=== PATIENT | male | born 1935 | race Caucasian/White ===

== ENCOUNTER 2018-07-26 22:53 | Inpatient (IN) | payer OTHER, MEDICAID ==
[~2018-07-26] VITALS: Ht 170.2 cm; Wt 56.2 kg
[~2018-07-26 22:53] MED LIST: CHOL200026 PO; DIAZ10TA4 PO
--- NOTE | 2018-07-26 23:13 | NUR ---
presented to ER for low BP. pt drowsy . responsive to verbal stimuli. no s/s of pain or discomfort.. placed on a monitor , will cont to monitor
[2018-07-26] MEDS ORDERED: IV NS 0.9% 1,000 ML BAG IV ONE (23:30)
[2018-07-26 23:32] LABS: BASOPHILS % (AUTO) 0.3 % (0.0-2.0); HEMATOCRIT 35 % (39-51); HEMOGLOBIN 11.6 g/dL (13.5-17.5); LYMPHOCYTES # (AUTO) 0.7 /CMM (0.8-4.8); LYMPHOCYTES % (AUTO) 4.9 % (20.0-44.0); MEAN CORPUSCULAR HGB CONC 33 g/dl (31.0-36.0); MEAN CORPUSCULAR VOLUME 91 fL (80-96); MONOCYTES # (AUTO) 0.6 /CMM (0.1-1.30); MONOCYTES % (AUTO) 4.2 % (2.0-12.0); NEUTROPHILS # (AUTO) 12.5 /CMM (1.8-8.9); NEUTROPHILS % (AUTO) 90.6 % (43.0-81.0); PLATELET COUNT (AUTO) 122 /CMM (150-450); RED BLOOD CELL COUNT(AUTO) 3.86 MIL/uL (4.5-6.0); WHITE BLOOD COUNT (AUTO) 13.8 K/uL (4.3-11.0)
[2018-07-26 23:41] LABS: CALCIUM, SERUM 10.8 mg/dL (8.5-10.1); CARBON DIOXIDE 32 mmol/L (21-32); CHLORIDE 107 mmol/L (98-107); CREATININE 1.5 mg/dL (0.6-1.3); GLUCOSE 139 mg/dL (74-106); SODIUM SERUM 144 mmol/L (136-145); UREA NITROGEN, BLOOD 43 mg/dL (7-18)
[2018-07-26 23:55] LABS: ALANINE AMINOTRANSFERASE 29 U/L (12-78); ALBUMIN 3.5 g/dL (3.4-5.0); ALKALINE PHOSPHATASE 73 U/L (46-116); ASPARTATE AMINOTRANSFERASE 32 U/L (15-37); B-TYPE NATRIURETIC PEPTIDE 556 PG/ML (0-125); BILIRUBIN,DIRECT 0.2 mg/dL (0.0-0.2); BILIRUBIN,TOTAL 0.7 mg/dL (0.2-1.0); TOTAL PROTEIN, SERUM 6.3 g/dL (6.4-8.2)
--- NOTE | 2018-07-26 23:57 | NUR ---
MADE AWARE OF BUN/ CR LEVEL, PER MD OK TO PROCEED WITH CT PULM ANGIO AND HEAD CT. TY AT RADIOLOGY MADE AWARE
[2018-07-26] MEDS ORDERED: IOHEXOL-350 100 ML VIAL IV ONE (23:58)
[2018-07-26] MEDS ORDERED: IV NS 0.9% 250 ML IV ONE (23:59)
[2018-07-26] MEDS ORDERED: CT SWABBABLE VALVE TRANS SET 1 EA INFUS.SET MC ONE (23:59)
[2018-07-27] MEDS ORDERED: CYAN10006 IJ (00:13)
[2018-07-27] MEDS ORDERED: CHOL200026 PO (00:13)
[2018-07-27] MEDS ORDERED: LORA10TA7 PO (00:13)
[2018-07-27] MEDS ORDERED: ACYC400T PO (00:13)
[2018-07-27] MEDS ORDERED: MULT1TAB73 PO (00:13)
[2018-07-27] MEDS ORDERED: CALC500T51 PO (00:13)
[2018-07-27] MEDS ORDERED: MARA300T4 PO (00:13)
[2018-07-27] MEDS ORDERED: MELO-107 PO (00:13)
[2018-07-27] MEDS ORDERED: HYDR-3980 PO (00:13)
[2018-07-27] MEDS ORDERED: DOLU1TAB PO (00:13)
[2018-07-27 00:17] LABS: D-DIMER 4.05 mg/L(FEU (0.17-0.50)
[2018-07-27] MEDS ORDERED: ACETAMINOPHEN 325 MG TABLET PO PRN (01:00)
[2018-07-27] MEDS ORDERED: MAGNESIUM HYDROXIDE 30 ML UDC PO PRN (01:00)
[2018-07-27] MEDS ORDERED: ZOLPIDEM TARTRATE 5 MG TABLET PO PRN (01:00)
[2018-07-27] MEDS ORDERED: LEVOFLOXACIN 750 MG /D5W 150ML PIGGYBACK IV ONE (01:00)
[2018-07-27] MEDS ORDERED: ONDANSETRON HCL/PF 4 MG/2 ML VIAL IVP PRN (01:00)
[2018-07-27] MEDS ORDERED: MAG HYDROX/AL HYDROX/SIMETH 30 ML UDC PO PRN (01:00)
[2018-07-27] MEDS ORDERED: HYDROCODONE/APAP 5/325MG 1 EACH TABLET PO PRN (01:00)
[2018-07-27] MEDS ORDERED: CEFTRIAXONE 1 G in IV D5W 50 ML IV ONE (01:00)
[2018-07-27] MEDS ORDERED: Z GUARD REMEDY 2 OZ OINT TP PRN (01:00)
[2018-07-27] MEDS ORDERED: IV NS 0.9% 1,000 ML IV SCH (01:00)
[2018-07-27] MEDS ORDERED: CEFTRIAXONE 1GM BAG (ER ONLY) 50 ML IV ONE (01:01)
[2018-07-27] MEDS ORDERED: LEVOFLOXACIN 750 MG /D5W 150ML 150 ML IV ONE (01:02)
--- NOTE | 2018-07-27 02:43 | NUR ---
CALLED GRETCHEN AND SPOKE TO DAYAN TO F/U W/ THE RESULTS OF HEAD CT AND CT PULM. ANGIO
--- NOTE | 2018-07-27 02:45 | NUR ---
RSTING IN BED AWAKE AND RESPONSIVE. NO PAIN OR DISCOMFORT . ON CONT MONITORING
--- NOTE | 2018-07-27 03:17 | NUR ---
LUCIA BED ASSIGNMENT 118-2
[2018-07-27] MEDS ORDERED: AZITHROMYCIN 500 MG in IV D5W 250 ML IV ONE (03:30)
--- NOTE | 2018-07-27 03:33 | NUR ---
report given to Steve at [facility]
--- NOTE | 2018-07-27 03:57 | NUR ---
pt was transferred to 118-2 under acls protocol in stable condition.
[2018-07-27 04:00] VITALS: BP 121/78
--- NOTE | 2018-07-27 04:00 | NUR ---
LUCIA/RN NOTES 82 YEARS OLD, MALE PATIENT RECEIVED FROM ER, WITH THE DX OF SEPSIS. NO S/S OF ACUTE DISTRESS NOTES. RESP EVEN AND UNLABORED. PATIENT ALERT AND ORIENTED X4, UKRAINIAN SPEAKING. ABLE TO MAKE NEEDS KNOWN. DENIES ANY PAIN OR DISCOMFORT AT THIS TIME. PATIENT PLACED IN BED, BODY ASSESSMENT DONE. KEPT CLEAN AND DRY. SAFETY MAINTAINED. BED AT THE LOWEST POSITION, LOCKED. CALL LIGHT WITHIN REACH. WILL CONTINUE TO MONITOR PATIENT PER PLAN OF CARE.
[2018-07-27] MEDS ORDERED: AZITHROMYCIN 500 MG VIAL ONE (05:26)
--- NOTE | 2018-07-27 07:02 | NUR ---
LUCIA/RN NOTES. PATIENT IN NO ACUTE DISTRESS AT THIS TIME. KEPT CLEAN AND DRY. ALL NEEDS ATTENDANT. SAFETY MAINTAINED. CALL LIGHT WITHIN REACH.
--- NOTE | 2018-07-27 07:30 | NUR ---
LUCIA RN INITIAL NOTES RECEIVED PT IN BED, C/O PAIN 10/10 IN BACK. ON 3L NC. O2 SAT WNL. NO S/SX OF RESP DISTRESS AT REST. ON TELE PT IS AFIB CONTROLLED. PT HAVING LOOSE STOOL. VS WNL. A/OX3. THAI SPEAKING. LAC #18G IN PLACE, RUNNING NS AT 100ML/HR. BED IN LOCKED/LOWEST POSITION. CALL LIGHT IN REACH. WILL CONT TO MONITOR.
[2018-07-27 07:39] LABS: HEMATOCRIT 35 % (39-51); HEMOGLOBIN 11.8 g/dL (13.5-17.5); LYMPHOCYTES # (AUTO) 0.6 /CMM (0.8-4.8); MEAN CORPUSCULAR HGB CONC 33 g/dl (31.0-36.0); MEAN CORPUSCULAR VOLUME 90 fL (80-96); MONOCYTES # (AUTO) 0.7 /CMM (0.1-1.30); MONOCYTES % (AUTO) 5.8 % (2.0-12.0); NEUTROPHILS # (AUTO) 11.4 /CMM (1.8-8.9); NEUTROPHILS % (AUTO) 89.2 % (43.0-81.0); PLATELET COUNT (AUTO) 119 /CMM (150-450); RED BLOOD CELL COUNT(AUTO) 3.93 MIL/uL (4.5-6.0); WHITE BLOOD COUNT (AUTO) 12.8 K/uL (4.3-11.0)
[2018-07-27 07:40] LABS: CHOLESTEROL 74 mg/dL (<200); HDL CHOLESTEROL 42 mg/dL (40-60); LDL 31 mg/dL (0-99); TRIGLYCERIDES 46 mg/dL (30-150)
[2018-07-27 07:48] LABS: CALCIUM, SERUM 10.1 mg/dL (8.5-10.1); CARBON DIOXIDE 26 mmol/L (21-32); CHLORIDE 101 mmol/L (98-107); CREATININE 1.1 mg/dL (0.6-1.3); GLUCOSE 188 mg/dL (74-106); MAGNESIUM 2.2 mg/dL (1.8-2.4); POTASSIUM 4.3 mmol/L (3.5-5.1); SODIUM SERUM 137 mmol/L (136-145); UREA NITROGEN, BLOOD 42 mg/dL (7-18)
[2018-07-27 08:00] VITALS: BP 113/56
[2018-07-27 08:37] LABS: ALBUMIN 3.2 g/dL (3.4-5.0); BILIRUBIN,DIRECT 0.1 mg/dL (0.0-0.2); BILIRUBIN,TOTAL 0.6 mg/dL (0.2-1.0); TOTAL PROTEIN, SERUM 6.2 g/dL (6.4-8.2)
[2018-07-27] MEDS: ACYCLOVIR 200 MG CAPSULE PO SCH (08:37)
[2018-07-27] MEDS: CHOLECALCIFEROL 1,000 UNIT TABLET (VIT D3) PO SCH (08:39)
[2018-07-27] MEDS: HYDROCODONE/APAP 10/325MG 1 EA TABLET PO PRN (08:39)
[2018-07-27] MEDS: CALCIUM CARBONATE (1250) 500 MG TABLET PO SCH (08:39)
[2018-07-27] MEDS: LORATADINE 10 MG TABLET PO SCH (08:39)
[2018-07-27] MEDS: MULTIVITAMINS,THERAGRAN 1 UDTAB TABLET PO SCH (08:40)
[2018-07-27] MEDS ORDERED: Medication Not On Formulary EA (Cholecalciferol (Vitamin D3) (Vitamin D3) 1,000 UNIT) PO SCH (09:00)
[2018-07-27] MEDS ORDERED: MELOXICAM 7.5 MG TABLET PO SCH (09:00)
[2018-07-27] MEDS ORDERED: CHOLECALCIFEROL 1,000 UNIT TABLET (VIT D3) PO SCH (09:00)
--- NOTE | 2018-07-27 09:30 | NUR ---
LUCIA RN NOTES OFFERED PT RECTAL TUBE. PT REFUSED, STATED IN VIETNAMESE THAT IT HURTS. CLEANED PT AND STOPPED INSERTING RECTAL TUBE.
[2018-07-27 12:00] VITALS: BP 122/72
[2018-07-27] MEDS ORDERED: IV NS 0.9% 1,000 ML IV PRN (12:40)
--- NOTE | 2018-07-27 15:05 | NUR ---
LUCIA RN NOTES CALLED DR MARTINEZ RE: HOME MEDS, DIARRHEA AND LOW GRADE FEVER. PER , SHE WILL LOOK AT CHART. AWAITING ORDERS.
[2018-07-27 16:00] VITALS: BP 108/63
--- NOTE | 2018-07-27 18:55 | NUR ---
LUCIA RN END OF SHIFT NOTES PT IN BED, ASLEEP INTERMITTENTLY. VS STABLE. PT NOT IN PAIN AT THIS TIME. AWAITING ORDERS/HOME MED REVIEW FROM DR MARTINEZ. WILL ENDORSE TO PM NURSE FOR BRENDA.
--- NOTE | 2018-07-27 19:20 | NUR ---
LUCIA/RN NOTES PATIENT IN BED, RESTING COMFORTABLY AT THIS TIME, NO S/S OF ACUTE DISTRESS NOTES AT THIS TIME. RESPIRATION EVEN AND UNLABORED. PATIENT ALERT AND ORIENTED X4, ARABIC SPEAKING. ABLE TO MAKE NEEDS KNOWN. DENIES ANY PAIN OR DISCOMFORT AT THIS TIME. PER AM SHIFT NURSE PATIENT BEEN HAVING EPISODES OF LOOSE STOOLS, DENIED RECTAL TUBE INSERTION. WILL CONTINUE TO MONITOR PATIENT. WILL CONTINUE TO HYDRATE PATIENT AND GIVE GOOD PERICARE. SAFETY MAINTAINED. BED AT THE LOWEST POSITION, LOCKED. CALL LIGHT WITHIN REACH. WILL CONTINUE TO MONITOR PATIENT PER PLAN OF CARE.
[2018-07-27 20:00] VITALS: BP 137/71
[2018-07-27] MEDS: DIAZEPAM 10 MG TABLET PO SCH (21:10)
[2018-07-27] MEDS ORDERED: IV D5/ 0.9% NACL 1,000 ML IV ONE (21:30)
[2018-07-27] MEDS ORDERED: VANCOMYCIN 1 GM in IV NS 0.9% 250 ML IV SCH (21:30)
[2018-07-27] MEDS: ALBUTEROL FS 2.5 MG/3 ML VIAL.NEB NEB SCH (22:28)
[2018-07-27] MEDS ORDERED: VANCOMYCIN 1 GM in IV NS 0.9% 250 ML IV ONE (22:30)
[2018-07-27] MEDS ORDERED: VANCOMYCIN 1 GM VIAL ONE (22:38)
[2018-07-27 22:49] LABS: BASOPHILS % (AUTO) 0.1 % (0.0-2.0); EOSINOPHILS % (AUTO) 0.1 % (0.0-6.0); HEMATOCRIT 39 % (39-51); HEMOGLOBIN 12.8 g/dL (13.5-17.5); LYMPHOCYTES # (AUTO) 0.7 /CMM (0.8-4.8); LYMPHOCYTES % (AUTO) 8.5 % (20.0-44.0); MEAN CORPUSCULAR HGB CONC 33 g/dl (31.0-36.0); MEAN CORPUSCULAR VOLUME 90 fL (80-96); MONOCYTES # (AUTO) 0.8 /CMM (0.1-1.30); MONOCYTES % (AUTO) 9.1 % (2.0-12.0); NEUTROPHILS # (AUTO) 7.1 /CMM (1.8-8.9); NEUTROPHILS % (AUTO) 82.2 % (43.0-81.0); PLATELET COUNT (AUTO) 115 /CMM (150-450); RED BLOOD CELL COUNT(AUTO) 4.25 MIL/uL (4.5-6.0); WHITE BLOOD COUNT (AUTO) 8.7 K/uL (4.3-11.0)
[2018-07-27] MEDS ORDERED: DEXTROSE 50%-WATER 50 ML DISP.SYRIN IV PRN (23:00)
[2018-07-27 23:09] LABS: CALCIUM, SERUM 9.4 mg/dL (8.5-10.1); CARBON DIOXIDE 24 mmol/L (21-32); CHLORIDE 102 mmol/L (98-107); CREATININE 0.8 mg/dL (0.6-1.3); GLUCOSE 124 mg/dL (74-106); POTASSIUM 3.8 mmol/L (3.5-5.1); SODIUM SERUM 137 mmol/L (136-145); UREA NITROGEN, BLOOD 30 mg/dL (7-18)
[2018-07-27] MEDS: BLOOD SUGAR DIAGNOSTIC 1 EACH STRIP VI SCH (23:35)
[2018-07-27] MEDS: *INSULIN REGULAR(HUMULIN R)HUM 100 UNIT/ML VIAL SQ PRN (23:41)
[2018-07-28] VITALS: BP 124/73
[2018-07-28] MEDS ORDERED: PIPERACILLIN /TAZOBACTAM 2.25 G VIAL IV ONE ×3 (00:43→05:13)
[2018-07-28] MEDS ORDERED: METRONIDAZOLE 500MG/ NS 100ML 100 ML IV ONE ×2 (00:43→05:12)
[2018-07-28] MEDS: METRONIDAZOLE 500MG/ NS 100ML 500 MG in PREMIX 1 EA IV SCH ×5 (00:48→23:46)
[2018-07-28] MEDS ORDERED: CEFTRIAXONE 1 G in IV D5W 50 ML IV SCH (01:00)
[2018-07-28] MEDS: PIPERACILLIN /TAZOBACTAM 4.5 G in IV D5W 50 ML IV SCH ×4 (01:59→17:58)
[2018-07-28 04:00] VITALS: BP 134/74
--- NOTE | 2018-07-28 06:16 | NUR ---
LUCIA/RN EXIT NOTES PATIENT IN BED, RESTING COMFORTABLY AT THIS TIME, NO S/S OF ACUTE DISTRESS NOTED. RESPIRATION EVEN AND UNLABORED. PATIENT ALERT AND ORIENTED X3 WITH PERIOD OF CONFUSION AND DISORIENTATION. SINHALA SPEAKING. NO S/S OF PAIN NOTED AT THIS TIME.. FLEXISEAL IN PLACE, DRAINING WELL WITH, GREENISH LIQUID STOOLS. PATIENT REMAINED ON SOFT BILATERAL WRIST RESTRAINT, PATIENT CONTINUE TO BE NOTED WITH EPISODES OF PULLING LINES AND RECTAL TUBE. SAFETY MAINTAINED. BED AT THE LOWEST POSITION, LOCKED. CALL LIGHT WITHIN REACH. WILL ENDORSE TO AM SHIFT NURSE FOR BRENDA.
[2018-07-28 07:05] LABS: BASOPHILS % (AUTO) 0.1 % (0.0-2.0); EOSINOPHILS % (AUTO) 0.6 % (0.0-6.0); HEMATOCRIT 35 % (39-51); HEMOGLOBIN 11.8 g/dL (13.5-17.5); LYMPHOCYTES % (AUTO) 11.1 % (20.0-44.0); MEAN CORPUSCULAR HGB CONC 34 g/dl (31.0-36.0); MEAN CORPUSCULAR VOLUME 90 fL (80-96); MONOCYTES # (AUTO) 0.6 /CMM (0.1-1.30); MONOCYTES % (AUTO) 6.8 % (2.0-12.0); NEUTROPHILS # (AUTO) 7.2 /CMM (1.8-8.9); NEUTROPHILS % (AUTO) 81.4 % (43.0-81.0); PLATELET COUNT (AUTO) 108 /CMM (150-450); WHITE BLOOD COUNT (AUTO) 8.8 K/uL (4.3-11.0)
[2018-07-28] MEDS: ALBUTEROL FS 2.5 MG/3 ML VIAL.NEB NEB SCH ×2 (07:09→11:40)
[2018-07-28] MEDS: BLOOD SUGAR DIAGNOSTIC 1 EACH STRIP VI SCH ×4 (07:30→21:21)
[2018-07-28 07:39] LABS: THYROID STIMULATING HORMONE 0.461 uIU/mL (0.358-3.74)
[2018-07-28 07:52] LABS: CALCIUM, SERUM 8.3 mg/dL (8.5-10.1); CARBON DIOXIDE 25 mmol/L (21-32); CHLORIDE 103 mmol/L (98-107); CREATININE 0.8 mg/dL (0.6-1.3); GLUCOSE 133 mg/dL (74-106); MAGNESIUM 1.7 mg/dL (1.8-2.4); POTASSIUM 3.6 mmol/L (3.5-5.1); SODIUM SERUM 135 mmol/L (136-145); UREA NITROGEN, BLOOD 26 mg/dL (7-18)
[2018-07-28 08:00] VITALS: BP 121/67
--- NOTE | 2018-07-28 08:00 | NUR ---
LUCIA/RN NOTES RECEIVED REPORT FROM GUILHERME TO.PATIENT IN BED, RESTING COMFORTABLY AT THIS TIME, NO S/S OF ACUTE DISTRESS NOTES AT THIS TIME. RESPIRATION EVEN AND UNLABORED. PATIENT ALERT AND ORIENTED X4, AMERICAN SPEAKING. ABLE TO MAKE NEEDS KNOWN. DENIES ANY PAIN OR DISCOMFORT AT THIS TIME. RECTAL TUBE DRAINING LIQUID BROWN STOOL.ON ISOLATION FOR C-DIFF PRECAUTIONS.LABS STILL PENDING. BED AT THE LOWEST POSITION, LOCKED. CALL LIGHT WITHIN REACH. SRX3.WILL CONTINUE TO MONITOR.
[2018-07-28] MEDS: CALCIUM CARBONATE (1250) 500 MG TABLET PO SCH (08:56)
[2018-07-28] MEDS: LORATADINE 10 MG TABLET PO SCH (08:56)
[2018-07-28] MEDS: MULTIVITAMINS,THERAGRAN 1 UDTAB TABLET PO SCH (08:56)
[2018-07-28] MEDS: CHOLECALCIFEROL 1,000 UNIT TABLET (VIT D3) PO SCH (08:56)
[2018-07-28] MEDS: ACIDOPHILUS/BULGARICUS 1 EACH TAB.CHEW PO SCH ×3 (08:56→17:58)
[2018-07-28] MEDS ORDERED: FEE PK DOSING 1 MIN EA MC ONE (09:08)
--- NOTE | 2018-07-28 09:15 | NUR ---
rn note report given to Chelsea for BRENDA, pt stable off restraints, pt calm.
[2018-07-28] MEDS: Magnesium 1GM/D5W 100ML PREMIX 100 ML IV SCH ×3 (10:30→19:25)
[2018-07-28] MEDS: VANCOMYCIN 0.75 GM in IV D5W 250 ML IV SCH ×2 (11:52→22:46)
[2018-07-28 12:00] VITALS: BP 119/62
--- NOTE | 2018-07-28 12:00 | NUR ---
PORT SURVEYOR NOTE SEEN BY ,UPDATED ABOUT PATIENT CONDITION WITH LABS.MADE AWARE ABOUT POOR PO INTAKE.GOT NEW ORDERS.SEEN BY .UPDATED ABOUT PATIENT CONDITION.WILL CONTINUE TO MONITOR.MORNING INSULIN NOT ADMINISTERED BECAUSE OF POOR PO INTAKE.
[2018-07-28] MEDS: ACYCLOVIR 200 MG CAPSULE PO SCH (12:17)
--- NOTE | 2018-07-28 14:00 | NUR ---
PACKAGE SEALER NOTE UPDATED ABOUT PATIENT CONDITION,CONTROLLED AFIB FROM SR FROM MORNING.NO ON ANY MEDS.OK TO CONTINUE HOME MEDS.THAT PATIENT BROUGHT FROM HOME.
[2018-07-28] MEDS: ALBUTEROL HALF STRENGTH 1.25 MG/3 ML VIAL.NEB NEB SCH ×2 (14:30→19:48)
[2018-07-28] MEDS: IPRATROPIUM NEB FS 0.5 MG/2.5 ML AMPUL.NEB NEB SCH ×2 (14:30→19:48)
[2018-07-28] MEDS: GUAIFENESIN LA 600 MG TABLET.SA PO SCH ×2 (14:51→21:11)
[2018-07-28 16:00] VITALS: BP 103/62
--- NOTE | 2018-07-28 16:37 | NUR ---
LUCIA RN NOTE PATIENT C/O LOWER ABDOMINAL PAIN AND LOW URINE OUT PUT.BLADER SCAN DONE.>450 ML RESIDUAL.REYES CATH INSERTED. MADE AWARE.LEFT MESSAGE.
[2018-07-28] MEDS: RILPIVIRINE PO SCH (17:58)
[2018-07-28] MEDS: MARAVIROC 300 MG PO SCH (17:58)
[2018-07-28] MEDS: DOLUTEGRAVIR PO SCH (17:58)
--- NOTE | 2018-07-28 19:00 | NUR ---
LUCIA/RN CLOSING NOTES PATIENT IN BED, RESTING COMFORTABLY AT THIS TIME, NO S/S OF ACUTE DISTRESS NOTES AT THIS TIME. RESPIRATION EVEN AND UNLABORED. PATIENT ALERT AND ORIENTED X4, CUBAN SPEAKING. ABLE TO MAKE NEEDS KNOWN. DENIES ANY PAIN OR DISCOMFORT AT THIS TIME. RECTAL TUBE DRAINING LIQUID BROWN STOOL. F/C DRAINING CLEAR DARK YELLOW URINE.BED AT THE LOWEST POSITION, LOCKED. CALL LIGHT WITHIN REACH. SRX3.WILL ENDORSE TO PM NURSE FOR BRENDA.
[2018-07-28 20:00] VITALS: BP 109/56
[2018-07-28] MEDS: DIAZEPAM 10 MG TABLET PO SCH (21:11)
[2018-07-28] MEDS: *INSULIN REGULAR(HUMULIN R)HUM 100 UNIT/ML VIAL SQ PRN (21:21)
[2018-07-28] MEDS ORDERED: IPRATROPIUM NEB FS 0.5 MG/2.5 ML AMPUL.NEB NEB SCH (22:30)
[2018-07-29] VITALS: BP 118/64
--- NOTE | 2018-07-29 | NUR ---
rosmery rn notes pts comfortably in bed sleeping no s/s of pain noted ,all needs attended too.
[2018-07-29] MEDS: PIPERACILLIN /TAZOBACTAM 4.5 G in IV D5W 50 ML IV SCH ×4 (00:34→16:47)
[2018-07-29] MEDS: ALBUTEROL HALF STRENGTH 1.25 MG/3 ML VIAL.NEB NEB SCH ×4 (01:05→19:55)
[2018-07-29] MEDS: IPRATROPIUM NEB FS 0.5 MG/2.5 ML AMPUL.NEB NEB SCH ×4 (01:05→19:55)
--- NOTE | 2018-07-29 01:53 | NUR ---
rosmery rn notes received pts in bed awake alert and responsive syriac speaking pts on 4 liters of 02 via nasal cannula, on tele afib controlled on the monitor sating 97% no sob no distress noted v/s stable afebrile , all needs attended too call light within reach due medication iv and po given as ordered, pts on f/c intact and patent draining with yellowish urine output . contact isolation completed pts is negative to cdiff , pts noted with loose and wattery stool on flexeseal drainage of liquid stool , on iv heplock on left upper arm and right upper arm g#20 intact and patent ,turned and reposition breathing tx given by rt as ordered, will continue to monitor pts . Addendum: 07/29/18 at 0207 by AMIE MENDOZA RN this note is intended for 8pm as initial notes
--- NOTE | 2018-07-29 02:51 | NUR ---
rosmery rn notes transfer care and report given to bart vasques on 02 at 2 liters via hi sating 98%
[2018-07-29 04:00] VITALS: BP 143/82
[2018-07-29 05:09] LABS: *BASOS 0 % (Not Estab.); *EOS 0 % (Not Estab.); *HCT 37.6 % (37.5-51.0); *HGB 12.5 g/dL (13.0-17.7); *IMMATURE GRANULOCYTES 0 % (Not Estab.); *LYMPHOCYTES 9 % (Not Estab.); *LYMPHS, ABSOLUTE 0.9 x10E3/uL (0.7-3.1); *MCH 29.3 pg (26.6-33.0); *MCHC 33.2 g/dL (31.5-35.7); *MCV 88 fL (79-97); *MONOCYTES 11 % (Not Estab.); *NEUTROPHILS 80 % (Not Estab.); *NEUTROPHILS, ABSOLUTE 7.4 x10E3/uL (1.4-7.0); *PLT 133 x10E3/uL (150-450); *RBC 4.26 x10E6/uL (4.14-5.80); *RDW 14.6 % (12.3-15.4)
--- NOTE | 2018-07-29 06:21 | NUR ---
TELE-TD/RN PATIENT IS SLEEPING AT THIS TIME, APPEAR COMFORTABLE, NO SIGNS OF DISTRESS NOTED, CALL LIGHT IN REACH. WILL CONTINUE TO MONITOR.
[2018-07-29] MEDS: METRONIDAZOLE 500MG/ NS 100ML 500 MG in PREMIX 1 EA IV SCH ×3 (06:26→16:47)
[2018-07-29 07:26] LABS: BASOPHILS % (AUTO) 0.5 % (0.0-2.0); EOSINOPHILS % (AUTO) 1.6 % (0.0-6.0); HEMATOCRIT 32 % (39-51); HEMOGLOBIN 10.8 g/dL (13.5-17.5); LYMPHOCYTES # (AUTO) 1.4 /CMM (0.8-4.8); MEAN CORPUSCULAR HGB CONC 34 g/dl (31.0-36.0); MEAN CORPUSCULAR VOLUME 90 fL (80-96); MONOCYTES # (AUTO) 0.5 /CMM (0.1-1.30); MONOCYTES % (AUTO) 5.2 % (2.0-12.0); NEUTROPHILS # (AUTO) 7.1 /CMM (1.8-8.9); NEUTROPHILS % (AUTO) 77.7 % (43.0-81.0); PLATELET COUNT (AUTO) 95 /CMM (150-450); RED BLOOD CELL COUNT(AUTO) 3.55 MIL/uL (4.5-6.0); WHITE BLOOD COUNT (AUTO) 9.2 K/uL (4.3-11.0)
[2018-07-29 07:54] LABS: CALCIUM, SERUM 7.8 mg/dL (8.5-10.1); CARBON DIOXIDE 27 mmol/L (21-32); CHLORIDE 102 mmol/L (98-107); CREATININE 0.8 mg/dL (0.6-1.3); GLUCOSE 121 mg/dL (74-106); MAGNESIUM 1.9 mg/dL (1.8-2.4); PHOSPHORUS 2.5 mg/dL (2.5-4.9); POTASSIUM 3.6 mmol/L (3.5-5.1); SODIUM SERUM 136 mmol/L (136-145); UREA NITROGEN, BLOOD 14 mg/dL (7-18)
[2018-07-29 08:00] VITALS: BP 128/71
[2018-07-29] MEDS: BLOOD SUGAR DIAGNOSTIC 1 EACH STRIP VI SCH ×4 (08:38→21:15)
[2018-07-29 08:49] LABS: BAND % (MANUAL) 1 % (0.0-5.0); EOSINOPHILS % (MANUAL) 2 % (0-4); LYMPHOCYTES % (MANUAL) 15 % (16-48); MONOCYTES % (MANUAL) 4 % (0-11.0); NEUTROPHILS % (MANUAL) 78 (42-76)
[2018-07-29] MEDS: INSULIN REGULAR, HUMAN 100 UNIT/ML 3 ML VIAL SQ PRN ×2 (08:52→12:37)
[2018-07-29 11:17] LABS: *% CD 4 POS. LYMPH 26.1 % (30.8-58.5); *% CD 8 POS. LYMPH 53.3 % (12.0-35.5); *ABSOLUTE CD 4 HELPER 235 /uL (359-1519); *ABSOLUTE CD 8 SUPPRESSOR 480 /uL (109-897); *CD4/CD8 RATIO 0.49 (0.92-3.72)
[2018-07-29] MEDS: CALCIUM CARBONATE (1250) 500 MG TABLET PO SCH (11:32)
[2018-07-29] MEDS: MULTIVITAMINS,THERAGRAN 1 UDTAB TABLET PO SCH (11:32)
[2018-07-29] MEDS: ACIDOPHILUS/BULGARICUS 1 EACH TAB.CHEW PO SCH ×3 (11:32→16:45)
[2018-07-29] MEDS: GUAIFENESIN LA 600 MG TABLET.SA PO SCH ×2 (11:32→21:03)
[2018-07-29] MEDS: ACYCLOVIR 200 MG CAPSULE PO SCH (11:33)
[2018-07-29] MEDS: CHOLECALCIFEROL 1,000 UNIT TABLET (VIT D3) PO SCH (11:33)
[2018-07-29] MEDS: LORATADINE 10 MG TABLET PO SCH (11:33)
[2018-07-29] MEDS: AZITHROMYCIN 250 MG TABLET PO SCH (11:33)
[2018-07-29] MEDS: VANCOMYCIN 0.75 GM in IV D5W 250 ML IV SCH (11:39)
[2018-07-29 12:00] VITALS: BP 119/69
[2018-07-29 16:00] VITALS: BP 116/70
[2018-07-29] MEDS: MARAVIROC 300 MG PO SCH (16:46)
[2018-07-29] MEDS: RILPIVIRINE PO SCH (16:46)
[2018-07-29] MEDS: DOLUTEGRAVIR PO SCH (16:46)
--- NOTE | 2018-07-29 19:05 | NUR ---
RN MS OPENING NOTES RECEIVED PATIENT IN BED AWAKE ALERT AND OREINTED X 3-4 , AZERI SPEAKING ABLE TO MAKE NEEDS KNOWN, RESPIRATIONS EVEN AND UNLABORED WITH EQUAL RISE AND FALL OF CHEST, DENIES ANY PAIN OR DISCOMFORT , ON 02 2 LITERS HOWEVER PATIENT REMOVES IT STATES HE DOESN'T NEED IT HE IS NOT SHORT OF BREATH WILL CALL IF HE NEEDS IT TO HAVE IT PLACED , PATIENT ALSO HAS AN ORDER FOR RECTAL TUBE, HOWEVER PATIENT DOES NOT WANT TO HAVE IT PLACED REFUSED, AT THIS TIME STATES HE DOES NOT HAVE ANY BM,BUT WILL CALL WHEN NEED TO BE CHANGED.FOELY CATHETER INTACT AND DRAINING WELL URINE YELLOW, CLEAR, IV SITE TO RIGHT FA AND LEFT FA #20 G , NO REDNESS, NO INFILTRATION . ORIENTED TO STAFF AND CALL LIGHT AND KEPT WITHIN REACH, ALL NEEDS ATTENDED AT THIS TIME,WILL CONTINUE TO MONITOR AND ATTEND TO NEEDS.
--- NOTE | 2018-07-29 19:11 | NUR ---
Handoff to YOUSUF Guzmán. Edwardo Floyd RN
[2018-07-29 20:00] VITALS: BP 153/58
[2018-07-29] MEDS: DIAZEPAM 10 MG TABLET PO SCH (21:03)
[2018-07-29] MEDS: *INSULIN REGULAR(HUMULIN R)HUM 100 UNIT/ML VIAL SQ PRN (21:15)
[2018-07-29] MEDS: VANCOMYCIN 1 GM in IV D5W 250 ML IV SCH (23:32)
[2018-07-30] MEDS: METRONIDAZOLE 500MG/ NS 100ML 500 MG in PREMIX 1 EA IV SCH ×4 (00:31→18:00)
[2018-07-30] MEDS: PIPERACILLIN /TAZOBACTAM 4.5 G in IV D5W 50 ML IV SCH ×4 (00:32→18:58)
[2018-07-30] MEDS: ALBUTEROL HALF STRENGTH 1.25 MG/3 ML VIAL.NEB NEB SCH ×4 (01:59→20:19)
[2018-07-30] MEDS: IPRATROPIUM NEB FS 0.5 MG/2.5 ML AMPUL.NEB NEB SCH ×4 (01:59→20:19)
[2018-07-30 04:00] VITALS: BP 105/64
--- NOTE | 2018-07-30 06:30 | NUR ---
RN MS CLOSING NOTES PATIENT IN BED AWAKE ALERT AND ORIENTED X 3-4 , CONGOLESE SPEAKING ABLE TO MAKE NEEDS KNOWN, RESPIRATIONS EVEN AND UNLABORED WITH EQUAL RISE AND FALL OF CHEST, DENIES ANY PAIN OR DISCOMFORT , ON 02 2 LITERS HOWEVER PATIENT REMOVES IT STATES HE DOESN'T NEED IT HE IS NOT SHORT OF BREATH WILL CALL IF HE NEEDS IT TO HAVE IT PLACED AT THIS TIME DOES NOT HAVE IT PLACED PER REQUEST SPO2 WNL 96-100% , PATIENT ALSO HAS AN ORDER FOR RECTAL TUBE, HOWEVER PATIENT DOES NOT WANT TO HAVE IT PLACED REFUSED, AT THIS TIME STATES HE DOES NOT HAVE ANY BM,BUT WILL CALL WHEN NEED TO BE CHANGED.FOELY CATHETER INTACT AND DRAINING WELL URINE YELLOW, CLEAR, IV SITE TO RIGHT FA AND LEFT FA #20 G , NO REDNESS, NO INFILTRATION . ABX RUNNING ORDERED CALL LIGHT KEPT WITHIN REACH, ALL NEEDS ATTENDED AT THIS TIME,WILL CONTINUE TO MONITOR AND ATTEND TO NEEDS AND ENDORSE TO NEXT SHIFT, REPOSITIONED HEELS OFFLOADED, SKIN REMAINS INTACT.
[2018-07-30 07:07] LABS: BASOPHILS % (AUTO) 0.3 % (0.0-2.0); EOSINOPHILS % (AUTO) 1.5 % (0.0-6.0); HEMATOCRIT 33 % (39-51); LYMPHOCYTES % (AUTO) 10.9 % (20.0-44.0); MEAN CORPUSCULAR HGB CONC 34 g/dl (31.0-36.0); MEAN CORPUSCULAR VOLUME 90 fL (80-96); MONOCYTES # (AUTO) 0.5 /CMM (0.1-1.30); NEUTROPHILS # (AUTO) 7.5 /CMM (1.8-8.9); NEUTROPHILS % (AUTO) 82.3 % (43.0-81.0); PLATELET COUNT (AUTO) 103 /CMM (150-450); RED BLOOD CELL COUNT(AUTO) 3.64 MIL/uL (4.5-6.0); WHITE BLOOD COUNT (AUTO) 9.1 K/uL (4.3-11.0)
[2018-07-30 07:18] LABS: CALCIUM, SERUM 7.6 mg/dL (8.5-10.1); CARBON DIOXIDE 28 mmol/L (21-32); CHLORIDE 102 mmol/L (98-107); CREATININE 0.9 mg/dL (0.6-1.3); GLUCOSE 105 mg/dL (74-106); MAGNESIUM 1.8 mg/dL (1.8-2.4); PHOSPHORUS 2.4 mg/dL (2.5-4.9); POTASSIUM 3.4 mmol/L (3.5-5.1); SODIUM SERUM 137 mmol/L (136-145); UREA NITROGEN, BLOOD 11 mg/dL (7-18)
[2018-07-30] MEDS: BLOOD SUGAR DIAGNOSTIC 1 EACH STRIP VI SCH ×4 (07:30→22:18)
[2018-07-30 08:00] VITALS: BP 126/69
[2018-07-30] MEDS: CALCIUM CARBONATE (1250) 500 MG TABLET PO SCH (09:39)
[2018-07-30] MEDS: MULTIVITAMINS,THERAGRAN 1 UDTAB TABLET PO SCH (09:39)
[2018-07-30] MEDS: AZITHROMYCIN 250 MG TABLET PO SCH (09:39)
[2018-07-30] MEDS: CHOLECALCIFEROL 1,000 UNIT TABLET (VIT D3) PO SCH (09:39)
[2018-07-30] MEDS: GUAIFENESIN LA 600 MG TABLET.SA PO SCH ×2 (09:39→20:54)
[2018-07-30] MEDS: ACYCLOVIR 200 MG CAPSULE PO SCH (09:39)
[2018-07-30] MEDS: LORATADINE 10 MG TABLET PO SCH (09:39)
[2018-07-30] MEDS: ACIDOPHILUS/BULGARICUS 1 EACH TAB.CHEW PO SCH ×3 (09:52→18:58)
--- NOTE | 2018-07-30 10:42 | NUR ---
home medications requested from the pharmacy .not available.
[2018-07-30] MEDS: VANCOMYCIN 1 GM in IV D5W 250 ML IV SCH ×3 (11:20→22:50)
[2018-07-30] MEDS ORDERED: POTASSIUM CHLORIDE 20 MEQ TAB.PRT.SR PO SCH (11:30)
[2018-07-30] MEDS: MARAVIROC 300 MG PO SCH (12:13)
[2018-07-30] MEDS: RILPIVIRINE PO SCH (12:13)
[2018-07-30] MEDS: DOLUTEGRAVIR PO SCH (12:13)
[2018-07-30] MEDS ORDERED: K PHOS NEUTRAL 250 MG TABLET PO ONE ×2 (13:00→13:30)
[2018-07-30] MEDS: INSULIN REGULAR, HUMAN 100 UNIT/ML 3 ML VIAL SQ PRN (13:13)
--- NOTE | 2018-07-30 13:53 | NUR ---
k phos 1 time dose given ,the other order is dulicate
[2018-07-30] MEDS: Magnesium 1GM/D5W 100ML PREMIX 100 ML IV SCH ×2 (14:34→16:48)
[2018-07-30 16:00] VITALS: BP 114/60
--- NOTE | 2018-07-30 18:03 | NUR ---
flagyl dose for 1800 held as the dose for 1300 was given late due to medications not available
--- NOTE | 2018-07-30 19:43 | NUR ---
RN MS OPENING NOTES RECIEVED PATIENT IN BED AWAKE ALERT AND ORIENTED X 3-4 , SAOTIMES FOUR. RESPIRATIONS EVEN AND UNLABORED WITH EQUAL RISE AND FALL OF CHEST, DENIES ANY PAIN OR DISCOMFORTWILL CONTINUE TO MONITER AND CARRY OUT PLAN OF CARE..
[2018-07-30 20:00] VITALS: BP 132/72
[2018-07-30] MEDS: DIAZEPAM 10 MG TABLET PO SCH (21:06)
[2018-07-30 23:00] VITALS: BP 132/72
[2018-07-31] VITALS: BP 132/72
[2018-07-31] MEDS: PIPERACILLIN /TAZOBACTAM 4.5 G in IV D5W 50 ML IV SCH ×3 (00:08→12:14)
[2018-07-31] MEDS: METRONIDAZOLE 500MG/ NS 100ML 500 MG in PREMIX 1 EA IV SCH ×5 (00:09→23:42)
[2018-07-31] MEDS: ALBUTEROL HALF STRENGTH 1.25 MG/3 ML VIAL.NEB NEB SCH ×4 (02:29→19:45)
[2018-07-31] MEDS: IPRATROPIUM NEB FS 0.5 MG/2.5 ML AMPUL.NEB NEB SCH ×4 (02:29→19:45)
[2018-07-31 04:00] VITALS: BP 132/77
--- NOTE | 2018-07-31 06:40 | NUR ---
RN MS CLOSING NOTES: PATIENT IN BED AWAKE ALERT AND ORIENTED X 3-4. IN NO ACUTE DISTRESS. RESPIRATIONS EVEN AND UNLABORED WITH EQUAL RISE AND FALL OF CHEST, DENIES ANY PAIN OR DISCOMFORT .. ALL NEEDS MET. WILL ENDORSE PLAN OF CARE TO AM SHIFT.
[2018-07-31 07:21] LABS: CALCIUM, SERUM 7.8 mg/dL (8.5-10.1); CARBON DIOXIDE 27 mmol/L (21-32); CHLORIDE 104 mmol/L (98-107); CREATININE 0.7 mg/dL (0.6-1.3); GLUCOSE 113 mg/dL (74-106); POTASSIUM 3.3 mmol/L (3.5-5.1); SODIUM SERUM 139 mmol/L (136-145); UREA NITROGEN, BLOOD 7 mg/dL (7-18)
[2018-07-31] MEDS: BLOOD SUGAR DIAGNOSTIC 1 EACH STRIP VI SCH ×4 (07:30→21:29)
[2018-07-31 08:00] VITALS: BP 114/57
[2018-07-31] MEDS ORDERED: POTASSIUM CHLORIDE 20 MEQ TAB.PRT.SR PO SCH (09:00)
[2018-07-31] MEDS: MULTIVITAMINS,THERAGRAN 1 UDTAB TABLET PO SCH (09:21)
[2018-07-31] MEDS: CHOLECALCIFEROL 1,000 UNIT TABLET (VIT D3) PO SCH (09:21)
[2018-07-31] MEDS: GUAIFENESIN LA 600 MG TABLET.SA PO SCH ×2 (09:21→21:15)
[2018-07-31] MEDS: LORATADINE 10 MG TABLET PO SCH (09:21)
[2018-07-31] MEDS: ACYCLOVIR 200 MG CAPSULE PO SCH (09:23)
[2018-07-31] MEDS: CALCIUM CARBONATE (1250) 500 MG TABLET PO SCH (09:24)
[2018-07-31] MEDS: AZITHROMYCIN 250 MG TABLET PO SCH (09:24)
[2018-07-31] MEDS: ACIDOPHILUS/BULGARICUS 1 EACH TAB.CHEW PO SCH ×3 (09:26→18:23)
[2018-07-31] MEDS: RILPIVIRINE PO SCH (10:26)
[2018-07-31] MEDS: VANCOMYCIN 1 GM in IV D5W 250 ML IV SCH (10:26)
[2018-07-31] MEDS: DOLUTEGRAVIR PO SCH (10:26)
[2018-07-31] MEDS: MARAVIROC 300 MG PO SCH (10:26)
[2018-07-31 12:00] VITALS: BP 120/65
[2018-07-31 16:00] VITALS: BP 118/75
[2018-07-31] MEDS: LEVOFLOXACIN (750 MG) 750 MG TABLET PO SCH (16:23)
--- NOTE | 2018-07-31 19:30 | NUR ---
MS RN OPENING NOTES Received patient A/O x4, awake, [place]an speaking with minimal Slovenian noted. Able to make needs known. On O2 inhalation via NC @ 2LPM, saturating well. No discomfort/complaints noted at this time. With pending order to D/C Da Silva catheter per MD. D/C FC with 350cc clear urine noted. Put on diaper. Encouraged patient to increase oral fluid intake as tolerated unless contraindicated. Provided water at bedside. Will continue to monitor accordingly. On fall precautions, call light within easy reach.
[2018-07-31 20:00] VITALS: BP 119/66
[2018-07-31] MEDS: DIAZEPAM 10 MG TABLET PO SCH (21:16)
--- NOTE | 2018-07-31 22:00 | NUR ---
MS RN NOTED Patient able to void with BM noted on diaper. Perineal care done, diaper changed.
[2018-08-01] MEDS: IPRATROPIUM NEB FS 0.5 MG/2.5 ML AMPUL.NEB NEB SCH ×4 (01:30→19:55)
[2018-08-01] MEDS: ALBUTEROL HALF STRENGTH 1.25 MG/3 ML VIAL.NEB NEB SCH ×4 (01:30→19:55)
[2018-08-01] MEDS: METRONIDAZOLE 500MG/ NS 100ML 500 MG in PREMIX 1 EA IV SCH ×3 (05:44→18:40)
[2018-08-01] MEDS: BLOOD SUGAR DIAGNOSTIC 1 EACH STRIP VI SCH ×4 (06:38→21:43)
--- NOTE | 2018-08-01 07:00 | NUR ---
MS RN CLOSING NOTES Patient asleep, easily awake, on supine position on bed. Total void within the shift x2 with LBM. No new complaints made. All due meds given as ordered. On fall precautions, call light within easy reach. Endorsed to the next shift.
[2018-08-01 07:06] LABS: BASOPHILS % (AUTO) 0.4 % (0.0-2.0); EOSINOPHILS % (AUTO) 2.1 % (0.0-6.0); HEMATOCRIT 35 % (39-51); HEMOGLOBIN 11.5 g/dL (13.5-17.5); LYMPHOCYTES % (AUTO) 14.1 % (20.0-44.0); MEAN CORPUSCULAR HGB CONC 33 g/dl (31.0-36.0); MEAN CORPUSCULAR VOLUME 91 fL (80-96); MONOCYTES # (AUTO) 0.6 /CMM (0.1-1.30); MONOCYTES % (AUTO) 8.3 % (2.0-12.0); NEUTROPHILS # (AUTO) 5.4 /CMM (1.8-8.9); NEUTROPHILS % (AUTO) 75.1 % (43.0-81.0); PLATELET COUNT (AUTO) 127 /CMM (150-450); RED BLOOD CELL COUNT(AUTO) 3.87 MIL/uL (4.5-6.0); WHITE BLOOD COUNT (AUTO) 7.2 K/uL (4.3-11.0)
[2018-08-01 07:13] LABS: CALCIUM, SERUM 8.1 mg/dL (8.5-10.1); CARBON DIOXIDE 28 mmol/L (21-32); CHLORIDE 106 mmol/L (98-107); CREATININE 0.6 mg/dL (0.6-1.3); GLUCOSE 109 mg/dL (74-106); MAGNESIUM 1.7 mg/dL (1.8-2.4); POTASSIUM 3.5 mmol/L (3.5-5.1); SODIUM SERUM 141 mmol/L (136-145); UREA NITROGEN, BLOOD 8 mg/dL (7-18)
[2018-08-01 08:00] VITALS: BP 150/85
[2018-08-01] MEDS: ACIDOPHILUS/BULGARICUS 1 EACH TAB.CHEW PO SCH ×3 (08:00→18:40)
[2018-08-01] MEDS: HYDROCODONE/APAP 10/325MG 1 EA TABLET PO PRN ×2 (08:45→15:00)
[2018-08-01] MEDS: LORATADINE 10 MG TABLET PO SCH (09:00)
[2018-08-01] MEDS: RILPIVIRINE PO SCH (09:00)
[2018-08-01] MEDS: MARAVIROC 300 MG PO SCH (09:00)
[2018-08-01] MEDS: CALCIUM CARBONATE (1250) 500 MG TABLET PO SCH (09:00)
[2018-08-01] MEDS: DOLUTEGRAVIR PO SCH (09:00)
[2018-08-01] MEDS: MULTIVITAMINS,THERAGRAN 1 UDTAB TABLET PO SCH (09:00)
[2018-08-01] MEDS: GUAIFENESIN LA 600 MG TABLET.SA PO SCH ×2 (09:00→21:43)
[2018-08-01] MEDS: ACYCLOVIR 200 MG CAPSULE PO SCH (09:00)
[2018-08-01] MEDS: CHOLECALCIFEROL 1,000 UNIT TABLET (VIT D3) PO SCH (09:00)
[2018-08-01 10:00] VITALS: BP 150/85
[2018-08-01] MEDS: Magnesium 1GM/D5W 100ML PREMIX 100 ML IV SCH ×2 (14:30→15:30)
[2018-08-01] MEDS: Potassium Phosphate meq 11 MEQ in IV D5W 100 ML IV SCH ×2 (15:00→18:40)
[2018-08-01 16:00] VITALS: BP 126/63
[2018-08-01] MEDS: LEVOFLOXACIN (750 MG) 750 MG TABLET PO SCH (16:09)
--- NOTE | 2018-08-01 19:39 | NUR ---
MS RN NOTES RECEIVED PT ON BED. SLEEPING. ON ROOM AIR NO RESPIRATORY DISTRESS NOTED. IV ACCESS PATENT AND INTACT. HEAD OF BED ELEVATED. SIDE RAILS UP. BED ALARM ON. WILL MONITOR PT CLOSELY.
[2018-08-01 20:00] VITALS: BP 124/73
--- NOTE | 2018-08-01 21:00 | NUR ---
RN MS NOTES RECEIVED PATIENT IN BED ASLEEP. EASILY AROUSABLE. ALERT AND ORIENTED X2, VERBALLY RESPONSIVE, ABLE TO MAKE NEEDS. LITHUANIAN SPEAKER. BREATHING EVEN AND UNLABORED. NO SOB NOTED. TOLERATING ROOM AIR. NO COMPLAINTS OF PAIN OR DISCOMFORT. NO FACIAL GRIMACING. IV ON RIGHT AND LEFT FOREARM INTACT AND PATENT. SKIN DRY AND WARM TO TOUCH. AFEBRILE. ALL OTHER NEEDS MET. SAFETY MEASURES IN PLACE. CALL LIGHT WITHIN REACH. WILL CONTINUE TO MONITOR.
[2018-08-01] MEDS: DIAZEPAM 10 MG TABLET PO SCH (21:43)
[2018-08-01] MEDS: *INSULIN REGULAR(HUMULIN R)HUM 100 UNIT/ML VIAL SQ PRN (21:45)
[2018-08-02] MEDS: METRONIDAZOLE 500MG/ NS 100ML 500 MG in PREMIX 1 EA IV SCH ×2 (00:14→05:53)
[2018-08-02] MEDS: ALBUTEROL HALF STRENGTH 1.25 MG/3 ML VIAL.NEB NEB SCH ×3 (01:13→13:43)
[2018-08-02] MEDS: IPRATROPIUM NEB FS 0.5 MG/2.5 ML AMPUL.NEB NEB SCH ×3 (01:13→13:43)
[2018-08-02 04:00] VITALS: BP 125/62
[2018-08-02] MEDS: INSULIN REGULAR, HUMAN 100 UNIT/ML 3 ML VIAL SQ PRN (06:34)
[2018-08-02] MEDS: BLOOD SUGAR DIAGNOSTIC 1 EACH STRIP VI SCH ×2 (06:34→11:23)
[2018-08-02 06:49] LABS: BASOPHILS % (AUTO) 0.5 % (0.0-2.0); EOSINOPHILS % (AUTO) 2.2 % (0.0-6.0); HEMATOCRIT 34 % (39-51); HEMOGLOBIN 11.3 g/dL (13.5-17.5); LYMPHOCYTES # (AUTO) 1.2 /CMM (0.8-4.8); MEAN CORPUSCULAR HGB CONC 34 g/dl (31.0-36.0); MEAN CORPUSCULAR VOLUME 90 fL (80-96); MONOCYTES # (AUTO) 0.6 /CMM (0.1-1.30); MONOCYTES % (AUTO) 9.2 % (2.0-12.0); NEUTROPHILS # (AUTO) 4.2 /CMM (1.8-8.9); NEUTROPHILS % (AUTO) 68.1 % (43.0-81.0); PLATELET COUNT (AUTO) 144 /CMM (150-450); RED BLOOD CELL COUNT(AUTO) 3.78 MIL/uL (4.5-6.0); WHITE BLOOD COUNT (AUTO) 6.1 K/uL (4.3-11.0)
--- NOTE | 2018-08-02 06:59 | NUR ---
RN MS CLOSING NOTES PATIENT RESTING IN BED. NO ACUTE CHANGES THROUGHOUT SHIFT. BREATHING EVEN AND UNLABORED. NO SOB NOTED. TOLERATING ROOM AIR. NO COMPLAINTS OF PAIN OR DISCOMFORT. NO FACIAL GRIMACING. IV ON RIGHT AND LEFT FOREARM INTACT AND PATENT. KEPT CLEAN DRY AND COMFORTABLE. ALL OTHER NEEDS MET. SAFETY MEASURES IN PLACE. CALL LIGHT WITHIN REACH. WILL ENDORSE TO ONCOMING NURSE FOR BRENDA.
[2018-08-02 07:03] LABS: CALCIUM, SERUM 8.1 mg/dL (8.5-10.1); CARBON DIOXIDE 29 mmol/L (21-32); CHLORIDE 105 mmol/L (98-107); CREATININE 0.6 mg/dL (0.6-1.3); GLUCOSE 112 mg/dL (74-106); MAGNESIUM 1.7 mg/dL (1.8-2.4); PHOSPHORUS 2.8 mg/dL (2.5-4.9); POTASSIUM 3.4 mmol/L (3.5-5.1); SODIUM SERUM 141 mmol/L (136-145); UREA NITROGEN, BLOOD 15 mg/dL (7-18)
--- NOTE | 2018-08-02 07:25 | NUR ---
RN OPENING NOTES RECEIVED PATIENT IN BED SLEEPING COMFORTABLY. EASILY AROUSABLE. PATIENT IS ALERT AND ORIENTED X1-2. PATIENT IS KOREAN SPEAKING. ABLE TO MAKE NEEDS KNOWN. BREATHING EVEN AND UNLABORED. NO SOB NOTED. SKIN IS DRY WARM TO TOUCH. ON ROOM AIR TOLERATED WELL. NO PAIN OR ACUTE DISTRESS AT THIS TIME. NO FACIAL GRIMACING. IV ACCESS ON RIGHT AND LEFT FOREARM INTACT AND PATENT. FLUSHING WELL. ALL NEEDS ANTICIPATED. KEPT CLEAN AND DRY. CALL LIGHT WITHIN REACHED. BED LOCKED AND IN LOWEST POSITION. PLAN OF CARE DISCUSSED. WILL CONTINUE TO MONITOR.
[2018-08-02 08:00] VITALS: BP 126/67
[2018-08-02] MEDS: ACYCLOVIR 200 MG CAPSULE PO SCH (08:31)
[2018-08-02] MEDS: MULTIVITAMINS,THERAGRAN 1 UDTAB TABLET PO SCH (08:31)
[2018-08-02] MEDS: LORATADINE 10 MG TABLET PO SCH (08:31)
[2018-08-02] MEDS: CHOLECALCIFEROL 1,000 UNIT TABLET (VIT D3) PO SCH (08:31)
[2018-08-02] MEDS: GUAIFENESIN LA 600 MG TABLET.SA PO SCH (08:31)
[2018-08-02] MEDS: CALCIUM CARBONATE (1250) 500 MG TABLET PO SCH (08:31)
[2018-08-02] MEDS: ACIDOPHILUS/BULGARICUS 1 EACH TAB.CHEW PO SCH ×2 (08:31→12:30)
[2018-08-02] MEDS: DOLUTEGRAVIR PO SCH (08:35)
[2018-08-02] MEDS: RILPIVIRINE PO SCH (08:35)
[2018-08-02] MEDS: MARAVIROC 300 MG PO SCH (08:35)
[2018-08-02 10:00] VITALS: BP 126/67
[2018-08-02] MEDS: Magnesium 1GM/D5W 100ML PREMIX 100 ML IV SCH ×2 (11:23→12:30)
[2018-08-02] MEDS ORDERED: POTASSIUM CHLORIDE 20 MEQ TAB.PRT.SR PO SCH (11:30)
[2018-08-02] MEDS ORDERED: METRONIDAZOLE 250 MG TABLET PO SCH (12:00)
[2018-08-02] MEDS ORDERED: METRONIDAZOLE 500 MG TABLET PO SCH (12:00)
[2018-08-02] MEDS: LEVOFLOXACIN (750 MG) 750 MG TABLET PO SCH (16:11)
--- NOTE | 2018-08-02 17:00 | NUR ---
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 GAVE REPORT TO EMT AND GAVE ALL THE DISCHARGE PAPERS, BELONGINGS WITH HOME MEDS AND MONEY, ALONG WITH THE PRESCRIPTION THAT WAS NEEDED TO BE GIVEN TO THE RECEIVED NURSE AT [facility]. REPORT WAS ALSO GIVEN TO YOUSUF FAY AT [facility]. PATIENT WAS THEN PLACED ON THE GURNEY AND WAS TAKEN AWAY. PATIENT LEFT UNIT IN STABLE CONDITION WITH ALL VITAL SIGNS WITHIN NORMAL LIMITS.
== END 2018-08-02 17:15 | DRG 177 ==
LOC: ER 22:55 → TELE-TD 07-27 03:19 → MEDSG1 07-29 12:30
PROVIDERS: ADMIT Internal Medicine
DX: J15.6 Pneumonia due to other Gram-negative bacteria (principal); I21.4 Non-ST elevation (NSTEMI) myocardial infarction; J96.01 Acute respiratory failure with hypoxia; G93.41 Metabolic encephalopathy; A04.9 Bacterial intestinal infection, unspecified; J98.11 Atelectasis; I25.10 Atherosclerotic heart disease of native coronary artery without angina pectoris; I48.91 Unspecified atrial fibrillation; E78.5 Hyperlipidemia, unspecified; E86.0 Dehydration; D63.8 Anemia in other chronic diseases classified elsewhere; Z95.2 Presence of prosthetic heart valve; Z95.1 Presence of aortocoronary bypass graft; Z79.899 Other long term (current) drug therapy; M48.00 Spinal stenosis, site unspecified; M54.16 Radiculopathy, lumbar region; G89.29 Other chronic pain; B19.20 Unspecified viral hepatitis C without hepatic coma; Z88.2 Allergy status to sulfonamides; I70.0 Atherosclerosis of aorta; F03.90 Unspecified dementia, unspecified severity, without behavioral disturbance, psychotic disturbance, mood disturbance, and anxiety; E11.22 Type 2 diabetes mellitus with diabetic chronic kidney disease; F32.9 Major depressive disorder, single episode, unspecified; J40 Bronchitis, not specified as acute or chronic; N18.9 Chronic kidney disease, unspecified; R56.9 Unspecified convulsions; M85.80 Other specified disorders of bone density and structure, unspecified site; M19.90 Unspecified osteoarthritis, unspecified site
CPT/HCPCS: 36415; 70450-TC; 71045-TC; 80048-TC; 80061-TC; 80076-TC; 80202-TC; 82962-TC; 83605-TC; 83735-TC; 83880; 84100-TC; 84443-TC; 84484-TC; 85025-TC; 85378-TC; 85730-TC; 86360; 87040-TC; 87081-TC; 94799-TC; 97116-TC; 97530-TC; A4216; A4217; G0378; J0456; J0696; J1815; J1956; J2543; J3370; J3475; J3490; J7030; J7042; J7050; J7060; Q9967